=== PATIENT | male | born 1955 | race African-American/Black ===

== ENCOUNTER 2017-08-08 07:44 | Emergency (ER) | payer SELFPAY ==
[~2017-08-08] VITALS: Ht 172.7 cm; Wt 89.9 kg
[~2017-08-08 07:44] MED LIST: ETOMIDATE 2MG/ML 10ML VIAL IV ONE; STERILE WATER FOR INJECTION 10ML VIAL ONE; VECURONIUM BROMIDE 10 MG/VIAL IV ONE
[2017-08-08 08:08] LABS: BASOPHILS % 1.1 % (0.0-2.0); EOSINOPHILS % 2.5 % (0.0-5.0); HEMATOCRIT. 49.4 % (42.0-52.0); HEMOGLOBIN. 16.4 g/dL (14.0-18.0); LYMPHOCYTES % 35.8 % (20.0-50.0); MEAN CORPUSCULAR HEMOGLOBIN 31.8 pg (28.0-32.0); MEAN CORPUSCULAR VOLUME 96.2 fL (80.0-94.0); MEAN PLATELET VOLUME 8.7 fl (7.4-10.4); MONOCYTES % 6.8 % (2.0-8.0); NEUTROPHILS % 53.8 % (40.0-76.0); PLATELET 261 x1000/uL (130-400); RED BLOOD CELL COUNT 5.14 mill/uL (4.7-6.1); RED CELL DISTRIBUTION WIDTH 13.1 % (11.6-14.6)
[2017-08-08 08:15] LABS: PROTHROMBIN TIME 10.6 sec (9.4-11.6)
[2017-08-08 08:27] LABS: CARBON DIOXIDE 25 mEq/L (21-32); CHLORIDE 110 mEq/L (98-107); ETHANOL BLOOD < 10 mg/dL
[2017-08-08 08:29] LABS: TROPONIN I < 0.02 ng/mL (0.00-0.04)
[2017-08-08] MEDS ORDERED: CALCIUM CHLORIDE 1GM/10ML SYR IV NR (09:00)
[2017-08-08] MEDS ORDERED: DEXTROSE 50% WATER 50ML SYRINGE IV NR (09:00)
[2017-08-08] MEDS ORDERED: INSULIN REGULAR (HUMULIN R) 300UNITS/3ML IV NR (09:00)
[2017-08-08] MEDS ORDERED: SODIUM BICARBONATE 8.4% 1 MEQ/ML 50ML SYR IV NR (09:05)
[2017-08-08] MEDS ORDERED: PROPOFOL 10MG/ML 100ML 100 ML IV SCH (09:15)
[2017-08-08] MEDS ORDERED: IOHEXOL-350 100 ML BOTTLE ONE (09:54)
[2017-08-08 10:03] VITALS: BP 229/116
[2017-08-08] MEDS ORDERED: HYDRALAZINE 20MG/ML VIAL IV ONE (10:15)
[2017-08-08] MEDS ORDERED: HYDRALAZINE 20MG/ML VIAL ONE (10:18)
== END 2017-08-08 12:22 | disposition short-term general hospital (02) ==
LOC: ER 07:51 → CANBEDREQ 10:01 → ER 12:22
DX: I67.82 Cerebral ischemia (principal); I60.9 Nontraumatic subarachnoid hemorrhage, unspecified; J32.0 Chronic maxillary sinusitis; R47.01 Aphasia; G51.0 Bell's palsy; Z46.59 Encounter for fitting and adjustment of other gastrointestinal appliance and device; Z46.82 Encounter for fitting and adjustment of non-vascular catheter; Z86.73 Personal history of transient ischemic attack (TIA), and cerebral infarction without residual deficits
CPT/HCPCS: 31500; 36415; 51702; 70450; 70496; 70498; 71010; 80053; 82962; 84484; 85025; 85610; 93005; 94002; 96374; 96375; 99291; A4216; G0482; J0360; J1815; J2704; J3490; Q9967; Z7610; A4315